=== PATIENT | male | born 1985 | race Two or more races ===

== ENCOUNTER 2017-02-02 17:42 | Emergency (ER) | payer SELFPAY ==
[2017-02-02 19:27] LABS: URINE BILIRUBIN NEGATIVE (NEGATIVE); URINE BLOOD TRACE (NEGATIVE); URINE GLUCOSE (UA) NEGATIVE (NEGATIVE); URINE KETONE NEGATIVE (NEGATIVE); URINE PH 6.5 (4.6 - 8.0); URINE PROTEIN NEGATIVE (NEGATIVE); URINE UROBILINOGEN 0.2 E.U./dL (0.2 - 1.0)
[2017-02-02 19:35] LABS: URINE COLOR STRAW
[2017-02-02 19:36] LABS: URINE BACTERIA NONE SEEN /hpf (NONE SEEN); URINE EPITHELIAL CELLS NONE SEEN /lpf (FEW); URINE RBC 0-2 /hpf (0-5); URINE WBC NONE SEEN /hpf (0-5)
[2017-02-02 19:43] LABS: % BASOPHILS 0.4 % (0.0-2.0); % EOSINOPHILS 6.4 % (0.0-5.0); % LYMPHOCYTES 33.2 % (20.0-50.0); % MONOCYTES 5.8 % (2.0-10.0); % NEUTROPHILS 54.2 % (40.0-80.0); HEMATOCRIT 44.4 % (41.0-60); HEMOGLOBIN 14.9 gm/dL (12-16); MEAN CELL VOLUME 87.6 fl (80-99); MEAN CORPUSCULAR HEMOGLOBIN 29.4 pg (26.0-30.0); MEAN CORPUSCULAR HGB CONC 33.5 pg (28.0-36.0); MEAN PLATELET VOLUME 8.9 fl; NEUTROPHILE ABSOLUTE 4.6 Th/cmm (1.8-8.0); PLATELET COUNT 210 Th/cmm (150-400); RED BLOOD COUNT 5.06 Mil/cmm (4.30-5.70); RED CELL DISTRIBUTION WIDTH 11.3 % (11.5-20.0); WHITE BLOOD COUNT 8.6 Th/cmm (4.8-10.8)
[2017-02-02] MEDS ORDERED: Sodium Chloride 0.9% 1,000 ML IV SCH (19:45)
--- NOTE | 2017-02-02 22:54 | ER Physician Documentation ---
DATE OF SERVICE: EMERGENCY DEPARTMENT COURSE: He came in the hospital because of left ureteric colic, he had similar colic about 9 years ago and we did the workup done. Uric acid level, I ordered it to see if there is any uric acid stone. Uric acid level was 5.8. Calcium level was 9.3, phosphorus was 2.4 and urine was essentially negative. Strain urine was essentially negative. White count was within normal limits 8.6, hemoglobin 14.9, hematocrit is 44.4. We got a CT of the abdomen and pelvis showing no acute disease, contracted urinary bladder, in short no pelvic or uterine, no abdominal stone was detected. The diagnosis remains that the patient presented with a left ureteric colic. He might have passed the stone. The patient is advised to drink plenty of fluids, see his physician, take cranberry tablet, and follow up with his physician. His other problem is as I mentioned, he had a right testicular and probably epididymis surgery that was removed 9 years ago in [facility], which [facility]. The patient is mildly obese. We will tell him to take less cholesterol and lose some weight and exercise and drinks plenty of fluids. JOB# [id number]
--- NOTE | 2017-02-02 23:37 | ER Physician Documentation ---
DATE OF SERVICE: 02/02/2017 The history was taken from the patient by first Hoang, our triage nurse, and then I saw the patient in bed #1. The patient complains of pain in the left side of the lumbar area and left costovertebral angle, radiating towards the medial part of the penile and testicular area with severe pain radiating towards testicle and into the groin area and according to him, it sounded like stone. According to me also it sounds like the patient has a renal stone type of pain and this started yesterday and it got worse, so the patient came here to the hospital. HISTORY OF PRESENT ILLNESS: The patient had similar kind of trouble on the right side somewhere about 9 years ago when he was in [place], at which time he also had some torsion around testicle and I believe of about epididymis torsion followed by infection followed by removal of the testis on the right side and epididymis also was removed at the same time. The patient was treated satisfactorily. The patient went home and no more stone or any other thing was detected. The patient drank some beer, drank more water, took some cranberry tablets, etc. Unfortunately, he got better until yesterday when he had this pain and he feels like something is going and poking his testicular site area. This is his only complaint. He does not have any other significant complaints. He has never had any left-sided kidney stone. He never had any workup done on the left side of the abdomen. He never had any other medical problems, no diabetes, no hypertension, no renal failure, no history of hydronephrosis and I asked him about the previous stone, whether he had retrograde removal of the stone. He said yes, but I am not sure whether he understands what I am telling but that is the only way that the stone if it starts between the ureter and the bladder that could be removed is a retrograde going through the penile area to the bladder and then removing the stone. No lithotripsy was done at that time. The patient does not have any other heart disease, lung disease, ____, no pneumonia, no TB, no blood clots, no heart attacks, no angina pectoris, no myocardial infarction, rheumatic fever, no valvular disease, no pericardial disease, no history of any arrhythmias, etc. were detected. No endocrine disease. No other renal problems. No polycystic kidney disease. No hydronephrosis was detected. PHYSICAL EXAMINATION: VITAL SIGNS: Vital signs taken by the triage nurse shows temperature 98.1, pulse of 80, respirations 16, blood pressure 144/93, saturation of 97%, height of 5 feet 10 inches, weighing 185 pounds. GENERAL: He appears to be adequately built and somewhat chubby, somewhat mildly obese. The right testicle is removed. Right-side had kidney stone and I believe, the epididymis might have also been removed. The left testicle is present. CHEST: Reveals trachea to be central. Fairly good air entry in both lungs without any rales, rhonchi, or bronchial wheezing. ABDOMEN: Soft, benign and negative. EXTREMITIES: There is minimal tenderness located in the left lumbar area, minimal in the left lower abdomen. SKIN: There is no tenderness in the left costovertebral angle, perhaps he might have passed the stone. CENTRAL NERVOUS SYSTEM: Within normal limits. CARDIAC: Reveals PMI is located in the fifth intercostal spaces in the midclavicular. S1, S2 were audible. Second heart sound is physiologically split. Third heart sound is absent. Leg is essentially normal bones and joints are otherwise within normal limits. No JVD, no cyanosis, no petechia. No ecchymosis. No evidence of any ___, it is essentially normal. Right testicle removed was evident. CLINICAL IMPRESSION: The patient complains of pain on the left side, which looks like the patient has pain in the left testicle going to the groin. Most likely, looks like a renal stone. I have ordered a CT of the abdomen and the pelvis. Got acid, calcium, phosphorus, urine examination, urine culture, etc. done. OTHER DIAGNOSES: 1. The patient has a right testicular removal because of right kidney stone followed by testicular infection. I believe most likely epididymis might be infected. Also, at this time and that surgery was done 9 years ago in [place], in [facility]. 2. Mild hypertension. 3. Mild obesity. The patient needs to be taking low cholesterol, low saturated fat, and lose some weight, walking, cranberry juice or cranberry capsules and walking. I have ordered this test and if we get any lab results, etc. and then, we will go from there. JOB# [id number]
--- NOTE | 2017-02-03 08:22 | Diagnostic Imaging Report ---
CT abdomen and pelvis without intravenous contrast Indication: Kidney stone, pain Comparison: None, Technique: Axial images were obtained from the lung bases to the bilateral proximal femurs without IV contrast. Coronal reconstructions were made. total DLP: 497, CTDI9.6 FINDINGS: Hypoventilatory changes of the lung bases are noted. Assessment of the solid organs is limited due to lack of IV contrast. There is a 3 mm granuloma seen within the right lobe of the liver. No focal splenic lesions identified. No evidence of focal pancreatic or adrenal lesions. No hydronephrosis or nephrolithiasis. The urinary bladder is underdistended, limiting its evaluation. Moderate stool is noted. No evidence of appendicitis. No evidence of free air or free fluid. The osseous structures demonstrate no acute abnormalities. Small bone islands of the pelvis are noted. IMPRESSION: No evidence of renal stones. No evidence of hydronephrosis. Underdistended urinary bladder, limiting its evaluation.
== END 2017-02-02 20:13 | disposition home or self-care (01) ==
LOC: ER 17:42
DX: N45.2 Orchitis (principal); I10 Essential (primary) hypertension; E66.9 Obesity, unspecified
CPT/HCPCS: 99285; 96372; 74176; 36415; 85025; 87086; 81001; 82310; 84100; 84550; J1885; J7030